=== PATIENT | female | born 1955 | race Caucasian/White ===

== ENCOUNTER → 2022-11-12 12:21 | Outpatient (BNVA) | payer MEDICARE, OTHER, SELFPAY | PROVIDERS: Visit Provider Internal Medicine | DX: M89.8X9 Other specified disorders of bone, unspecified site (principal); Z98.890 Other specified postprocedural states; K85.90 Acute pancreatitis without necrosis or infection, unspecified; I48.91 Unspecified atrial fibrillation; Z90.49 Acquired absence of other specified parts of digestive tract; M25.511 Pain in right shoulder; M45.0 Ankylosing spondylitis of multiple sites in spine; L40.9 Psoriasis, unspecified; R50.9 Fever, unspecified; R70.0 Elevated erythrocyte sedimentation rate; Z11.1 Encounter for screening for respiratory tuberculosis; Z11.59 Encounter for screening for other viral diseases | CPT/HCPCS: 36415; 72202; 73120; 80053; 81001; 82550; 82784; 83516; 83540; 84155; 84165; 84550; 85025; 85651; 86140; 86160; 86162; 86200; 86235; 86255; 86376; 86431; 86480; 86803; 86812; 99204 ==

== ENCOUNTER → 2022-12-26 09:52 | Outpatient (BNVA) | payer MEDICARE, OTHER, SELFPAY | PROVIDERS: Visit Provider Internal Medicine | DX: R70.0 Elevated erythrocyte sedimentation rate (principal); R10.9 Unspecified abdominal pain; M54.9 Dorsalgia, unspecified; M53.3 Sacrococcygeal disorders, not elsewhere classified; M89.8X9 Other specified disorders of bone, unspecified site; R50.9 Fever, unspecified; M25.511 Pain in right shoulder | CPT/HCPCS: 36415; 72100; 81003; 83520; 85651; 86003; 86008; 99214 ==

== ENCOUNTER → 2022-12-26 09:52 | Outpatient (BNVA) | payer MEDICARE, OTHER, SELFPAY | PROVIDERS: Visit Provider Internal Medicine | DX: R70.0 Elevated erythrocyte sedimentation rate (principal); R10.9 Unspecified abdominal pain; M54.9 Dorsalgia, unspecified; M53.3 Sacrococcygeal disorders, not elsewhere classified; M89.8X9 Other specified disorders of bone, unspecified site; R50.9 Fever, unspecified; M25.511 Pain in right shoulder | CPT/HCPCS: 36415; 81003; 83520; 85651; 86003; 86008 ==

== ENCOUNTER → 2023-04-17 11:06 | Outpatient (BNVA) | payer MEDICARE, OTHER, SELFPAY | PROVIDERS: Visit Provider Internal Medicine | DX: R10.9 Unspecified abdominal pain (principal); M70.60 Trochanteric bursitis, unspecified hip; R70.0 Elevated erythrocyte sedimentation rate; M25.511 Pain in right shoulder; R50.9 Fever, unspecified; M89.8X9 Other specified disorders of bone, unspecified site; M47.894 Other spondylosis, thoracic region; M41.84 Other forms of scoliosis, thoracic region | CPT/HCPCS: 36415; 72040; 72072; 80053; 81001; 85025; 85651; 86140; 99214 ==

== ENCOUNTER → 2025-04-10 14:26 | Outpatient (BNVA) | payer MEDICARE, OTHER, SELFPAY | PROVIDERS: Visit Provider Internal Medicine Rheumatology | DX: L40.50 Arthropathic psoriasis, unspecified (principal); L40.0 Psoriasis vulgaris; Z79.899 Other long term (current) drug therapy; Z71.85 Encounter for immunization safety counseling; E11.9 Type 2 diabetes mellitus without complications | CPT/HCPCS: 36415; 82306; 83520; 86200; 86431; 86480; 86704; 86803; 87340; 99215 ==